=== PATIENT | female | born 1965 | race Caucasian/White ===

== ENCOUNTER 2019-04-12 14:43 | Inpatient (IN) | payer BC ==
[~2019-04-12 14:43] MED LIST: Lidocaine 1% PF 5 ML VIAL ONE; PHENYLEPHRINE-NS 100 MCG/ML 10 ML SYRINGE ONE; PROPOFOL 200 MG/20 ML VIAL ONE
[2019-04-12] MEDS ORDERED: Acetaminophen 500 MG TAB ONE (15:23)
[2019-04-12] MEDS ORDERED: Fentanyl 100 MCG/2 ML VIAL ONE ×3 (15:32→18:59)
[2019-04-12] MEDS ORDERED: Adacel (T-DAP) 0.5 ML SYRINGE ONE (15:32)
[2019-04-12] MEDS ORDERED: Ondansetron PF 4 MG/2 ML Vial ONE (15:32)
[2019-04-12] MEDS ORDERED: Ketorolac Tromethamine 30 MG/ML VIAL ONE (15:32)
[2019-04-12] MEDS ORDERED: Cefepime 2 GM VIAL ONE (15:32)
[2019-04-12] MEDS ORDERED: Sodium Chloride 0.9% 100 ML ONE (15:32)
--- NOTE | 2019-04-12 15:57 | RAD ---
TWO VIEWS OF THE LEFT TIBIA/FIBULA: HISTORY: Skin cancer removed on 03/27 in the left leg. Pain and swelling in the left leg after surgery. FINDINGS: Two views of the left leg show no evidence of acute fracture or dislocation. Mild diffuse soft tissu e swelling is seen. No osseous erosions are seen. IMPRESSION: No evidence of acute osseous abnormality. POS: TPC
[2019-04-12] MEDS ORDERED: Neomycin-Polymyxin 1 ML AMP ONE (17:20)
[2019-04-12] MEDS ORDERED: Midazolam HCl 2 mg/2 ml Vial ONE (17:39)
[2019-04-12] MEDS ORDERED: Morphine 2 MG/ML SYRINGE SLOW IVP PRN (18:24)
[2019-04-12] MEDS ORDERED: Ketorolac Tromethamine 30 MG/ML VIAL IVP PRN (18:24)
[2019-04-12] MEDS ORDERED: ALPRAZolam 0.5 MG TAB PO PRN ×2 (18:24→18:54)
[2019-04-12] MEDS ORDERED: Morphine 4 MG/ML VIAL SLOW IVP PRN (18:24)
[2019-04-12] MEDS ORDERED: Ondansetron HCl/PF 4 MG in Sodium Chloride 0.9% 50 ML IVPB PRN ×2 (18:24→18:54)
[2019-04-12] MEDS ORDERED: HYDROcodone/Acetaminophen 10/325 mg Tablet PO PRN ×2 (18:24)
[2019-04-12] MEDS ORDERED: Ondansetron HCl/PF 4 MG/2 ML Vial IVP PRN ×2 (18:26→18:54)
[2019-04-12] MEDS ORDERED: Promethazine HCl 25 MG/ML VIAL SLOW IVP PRN ×2 (18:26→18:54)
[2019-04-12] MEDS ORDERED: Promethazine HCl 25 MG/ML VIAL IM PRN ×2 (18:26→18:54)
[2019-04-12] MEDS ORDERED: Sodium Chloride 0.9% 1,000 ML IV SCH (18:30)
[2019-04-12] MEDS: Sodium Chloride 0.9% 1,000 ML IV SCH (19:45)
[2019-04-12] MEDS ORDERED: Vancomycin 1.5 GRAM/300 ML BAG 1.5 GM in Premix Bag 1 BAG IVPB SCH ×2 (20:00→21:00)
[2019-04-12 20:10] VITALS: BMI 23.9
[2019-04-12] MEDS: HYDROcodone/Acetaminophen 10/325 mg Tablet PO PRN (20:55)
--- NOTE | 2019-04-12 23:22 | HP ---
CHIEF COMPLAINT: Left lower leg infection. 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 She says two days ago, she went in for postop check. They removed her sutures and has had progressive pain and swelling and erythema since. She reports low-grade fever at home. PAST MEDICAL HISTORY: Hypertension. PAST SURGICAL HISTORY: Just Mohs surgery and carpal tunnel surgery. MEDICATIONS: 1. Amlodipine. 2. Doxycycline. ALLERGIES: NO KNOWN DRUG ALLERGIES. SOCIAL HISTORY: She is . She works as a beauty culture teacher. No tobacco. Social alcohol. FAMILY HISTORY: Hypertension and cancer. PHYSICAL EXAMINATION: VITAL SIGNS: Temperature 99, pulse 115, blood pressure 115/73. GENERAL: She is awake and alert. She appears to be in pain. HEENT: Unremarkable. LUNGS: Clear. HEART: Regular rate and rhythm. ABDOMEN: Soft, nondistended, and nontender. She has cellulitis of the left lower leg from ankle to knee with a 2 cm fluctuant abscess just over the lopez midshaft. She had plain films showing no osseous abnormality. ASSESSMENT: Cellulitis and abscess. PLAN: I and D and debridement in the operating room. CONSENT: I have discussed planned procedure as well as risk of bleeding, infection, need for further surgery. She understands and gives informed consent. Job ID: [id number]
[2019-04-12] MEDS ORDERED: Piperacillin/Tazobactam 3.375 GM in Sodium Chloride 0.9% 100 ML IVPB SCH (23:59)
[2019-04-13] MEDS: Piperacillin/Tazobactam 3.375 GM in Sodium Chloride 0.9% 100 ML IVPB SCH ×5 (00:28→23:39)
[2019-04-13] MEDS: Vancomycin 1.5 GRAM/300 ML BAG 1.5 GM in Premix Bag 1 BAG IVPB SCH ×3 (01:39→21:07)
[2019-04-13] MEDS: HYDROcodone/Acetaminophen 10/325 mg Tablet PO PRN ×4 (04:43→19:14)
[2019-04-13 05:51] LABS: #Basophils 0.1 thou/uL (0.0-0.2); #Eosinphils 0.2 thou/uL (0.0-0.7); #Lymphocytes 0.9 thou/uL (1.20-3.40); #Neutrophils 13.1 thou/uL (1.40-6.50); %Basophils 0.4 % (0.0-1.0); %Eosinophils 1.2 % (0.0-10.0); %Monocytes 6.5 % (0.0-10.0); Hemoglobin 10.8 g/dL (12.0-16.0); Mean Corpuscular HGB CONC 32.1 g/dL (32.0-36.0); Mean Corpuscular Hemoglobin 28.7 pg (27.0-31.0); Mean Corpuscular Volume 89.3 fL (78.0-98.0); Mean Platelet Volume 7.4 fL (7.4-10.4); Platelet Count 193 thou/uL (130-400); RBC Distribution Width 11.9 % (11.5-14.5); Red Blood Cell (RBC) Count 3.75 mill/uL (4.20-5.40); White Blood Cell (WBC) Count 15.2 thou/uL (4.8-10.8)
[2019-04-13 06:10] LABS: Anion Gap 13 mmol/L (10-20); BUN (Urea Nitrogen) 7 mg/dL (9.8-20.1); Calc. Creatinine Clearance 91 mL/min (70-130); Calcium 8.5 mg/dL (7.8-10.44); Carbon Dioxide 19 mmol/L (22-29); Chloride 106 mmol/L (98-107); Estimated GFR-MDRD 82; Glucose 83 mg/dL (70-105); Potassium 3.5 mmol/L (3.5-5.1); Sodium 134 mmol/L (136-145)
[2019-04-13] MEDS: Enoxaparin Sodium 40 MG/0.4 ML SYRINGE SC SCH (08:42)
[2019-04-13] MEDS: Amlodipine 5 MG TAB PO SCH (08:44)
[2019-04-13] MEDS ORDERED: Enoxaparin Sodium 40 MG/0.4 ML SYRINGE SC SCH (09:00)
[2019-04-13] MEDS ORDERED: Amlodipine 5 MG TAB PO SCH (09:00)
--- NOTE | 2019-04-13 09:05 | OP ---
DATE OF PROCEDURE: 04/12/2019 PREOPERATIVE DIAGNOSIS: Abscess and cellulitis, left lower leg. PROCEDURE PERFORMED: Incision, drainage, and debridement of wound, left lower leg. INDICATIONS: This is a 53-year-old female, who had a squamous cell carcinoma excised a couple of weeks ago in [place], stitches removed on Wednesday, had a very rapidly progressive painful infection of the lower leg that extended within 12 hours concerned about fasciitis. FINDINGS: The fascia was intact. There was a 2 cm abscess over the skin. There was a 1 mm puncture of the fascia, but the fascia was all viable. DESCRIPTION OF PROCEDURE: After informed consent was obtained, the patient was taken to the operating room, given general endotracheal anesthesia. She was placed in supine position. Her left lower leg was prepped and draped in usual fashion. An elliptical incision was performed. The fluctuant area was unroofed. Cultures were obtained. The skin was excised. The subcu was excised. Hemostasis was achieved with electrocautery. There was a tiny little 1 mm puncture of the fascia that was opened up to expose the subfascial muscle. Then, the wound was pulse irrigated with 3 L of saline with antibiotic within it. Again, hemostasis assured. The wound was packed open with Betadine wide mesh gauze and sterile gauze wrapped by Kerlix. She tolerated the procedure well, transferred to Recovery in good condition. Sponge and needle count verified correct x2. Job ID: [id number]
[2019-04-13] MEDS ORDERED: Acetaminophen 325 MG TAB PO PRN (10:01)
--- NOTE | 2019-04-13 10:15 | PRG ---
DATE OF SERVICE: 04/13/2019 SUBJECTIVE: The patient states her pain is much better after debridement. Her T max was 103, it is back down to 99. Heart rate 104. She looks good. The erythema is almost resolved. The soft tissue swelling is still prominent. The wound is clean. There is very minimal drainage. LABORATORY DATA: Her white count is 15, H and H 10 and 33, platelet count 193. Electrolytes are fine. ASSESSMENT: Abscess and cellulitis of the left lower leg. PLAN: Continue IV antibiotics. We will ask for wound VAC. Job ID: [id number]
--- NOTE | 2019-04-13 12:00 | PQF ---
CLINICAL DOCUMENTATION IMPROVEMENT CLARIFICATION FORM: ICD-10 Updated PLEASE DO AN ADDENDUM TO THE PROGRESS NOTE WITH ANY DOCUMENTATION UPDATES OR ADDITIONS AND CARRY THROUGH TO DC SUMMARY. THANK YOU. DATE: 04/14/19 ATTN: DR. GAMBINO Please exercise your independent, professional judgment in responding to the clarification form. Clinical indicators are provided on the bottom of this form for your review Please check appropriate box(es): [ ] Sepsis due to: (Pna, UTI, gangrenous gall bladder, etc.) [ ] SIRS due to non-infectious process (please specify etiology) [ ] Localized infection without sepsis [ ] Other diagnosis [ ] Unable to determine In addition, please specify: Present on Admission (POA): [ ] Yes [ ] No [ ] Unable to determine For continuity of documentation, please document condition throughout progress notes and discharge summary. Thank You. CLINICAL INDICATORS - SIGNS / SYMPTOMS / LABS / RESULTS AND LOCATION IN MR ER NOTE: PULSE 119-124 99.9-103.2 BP 89/53 / 97/55 RISKS: CELLULITIS LEFT LOWER LEG (OP NOTE 04/12) TREATMENT: IV CEFEPIME (ER) IV FLUIDS (ER) IV ZOSYN (04/12-PRESENT) IV VANCOMYCIN (STARTED 04/13) WOUND CULTURES 04/12 INCISION AND DRAINAGE AND EXCISIONAL DEBRIDEMENT04/12 (This form is maintained as a part of the permanent medical record) [employer] 2015 [employer]. All Rights Reserved [email or web address] [email or web address] Office: [phone] [facility] SYSTEM[facility]
[2019-04-13] MEDS: Ketorolac Tromethamine 30 MG/ML VIAL IVP PRN ×2 (12:28→18:17)
[2019-04-13] MEDS: Polyethylene Glycol 3350 17 GM Packet PO PRN (12:29)
[2019-04-13 13:26] LABS: Vancomycin, Trough 9.8 ug/mL
[2019-04-13] MEDS: Sodium Chloride 0.9% 1,000 ML IV SCH (18:14)
[2019-04-13] MEDS ORDERED: Sodium Chloride 0.9% 1,000 ML IV SCH (19:45)
--- NOTE | 2019-04-13 23:15 | CON ---
DATE OF CONSULTATION: PRIMARY CARE PHYSICIAN: Dr. Tali Goodwin and it is out of town physician. REASON FOR CONSULTATION: Medical management and hypotension. REASON FOR ADMISSION: I and D of leg infection. HISTORY OF PRESENT ILLNESS: Ms. Carrera is a very pleasant 53-year-old female, who was recently found to have squamous cell carcinoma of her left leg. She had a Mohs excision procedure and had gone on Wednesday to have the sutures removed. She says when the sutures were taken out, she was doing fine, but then later on that night she started having swelling in the legs, but no fever. By Wednesday, the swelling had gotten worse and she was not feeling well. The area was a bit red and painful as well. She came to the ER for evaluation. There, she was found to have cellulitis and there was also concern for possible abscess. She was admitted by Dr. Durham and underwent an incision and drainage and debridement of a left lower leg abscess and wound VAC was placed. She was started on antibiotics on admission including vancomycin and Zosyn. We were consulted due to the patient's blood pressure dropping as low as 80/53. During this time, she was essentially asymptomatic, but her daughter says she does appear to be more tired and sleepy than usual. She has been given a liter of fluid IV and her pressure has since recovered and we were asked to help in her evaluation. The patient other than feeling a bit tired, denies any other complaints such as nausea, vomiting, no diarrhea, but she does admit that her appetite has not been the greatest. No chest pain, but she does note that she does feel a bit short winded and notices that she hears some "wheezing or whistling" in her chest when she freeze recently. REVIEW OF SYSTEMS: Negative. PAST MEDICAL HISTORY: Significant for hypertension, as well as recent diagnosis of squamous cell carcinoma. PAST SURGICAL HISTORY: She has had Mohs procedure, excision of the squamous cell carcinoma, and then I and D of the abscess on the left lower leg yesterday. ALLERGIES: NO KNOWN DRUG ALLERGIES. SOCIAL HISTORY: She is . She works as a teacher of the handicapped. She denies any tobacco use. She drinks socially. FAMILY HISTORY: Significant for hypertension and cancer. MEDICATIONS: Include: 1. Amlodipine 10 mg daily. 2. Acyclovir 800 mg daily. 3. Duloxetine 60 mg daily. 4. Yuvafem estradiol vaginally. 5. MiraLAX 17 g daily. 6. Crestor 5 mg at bedtime. PHYSICAL EXAMINATION: GENERAL: She is alert and oriented. She appears to be in no acute distress. She is well developed and well nourished. VITAL SIGNS: Blood pressure was 103/53, heart rate 86, respiratory rate of 16, temperature is 97.8, and O2 saturation is 94% on room air. HEENT: Pupils are equal, round, and reactive. Extraocular muscles are intact. Her sclerae are anicteric. Throat, no erythema, no exudates. NECK: No adenopathy. No bruits. LUNGS: Clear with the exception of some rales primarily in the right lung field, as well as some mild expiratory wheezing. CARDIOVASCULAR: She had a normal S1 and S2. There is no S3 or S4. No murmurs or clicks. No rubs. ABDOMEN: Soft, nontender, and nondistended. Positive for bowel sounds. No rebound or guarding. No organomegaly. EXTREMITIES: She has a wound VAC in place on the left leg. There is some erythema and edema in the left lower extremity especially around the foot and the ankle. She does have 2+ pitting edema, however, she has intact pulses. The dorsalis pedis and posterior tibial are 2+ and symmetric. She has good capillary refill. She does not have any paresthesias in the foot. She is able to wiggle all of her toes. LABORATORY RESULTS: She had a CBC, the white blood cell count 15.2, hemoglobin 10.8, hematocrit is 33.5, and platelet count is 193. Sodium 134, potassium 3.5, chloride is 106, CO2 is 19, BUN is 7, creatinine 0.74. ASSESSMENT: This is a 53-year-old female, who presented with cellulitis and abscess of the left lower extremity. She is status post I and D. Culture from the wound is growing Staph aureus. The sensitivities are still pending. I suspect that the patient's hypotension may have been related to a transient bacteremia from the staph infection. Hopefully with continued IV antibiotics, her blood pressure should recover and maintain. For the plan, we will get a set of blood cultures to see whether or not she has any bacteremia. Unfortunately since she has been on antibiotics for several days, the yield is likely to be low. We will go ahead and discontinue the IV fluids as her blood pressure is now above 90, as there was some concern that she might be becoming volume overloaded as evidenced by some clinical pulmonary congestion. We will also start some incentive spirometry and DuoNeb p.r.n. 1. Hypertension. Continue to hold her amlodipine until her blood pressure fully recovers. 2. We will repeat CBC and chemistry panel in the a.m. We will be happy to follow along with you. Thanks for allowing us to participate in the care of this very nice lady. Job ID: [id number]
[2019-04-14] MEDS ORDERED: Sodium Chloride 0.9% 10 ML ONE (03:01)
[2019-04-14] MEDS: Piperacillin/Tazobactam 3.375 GM in Sodium Chloride 0.9% 100 ML IVPB SCH ×4 (05:37→23:06)
[2019-04-14] MEDS: HYDROcodone/Acetaminophen 10/325 mg Tablet PO PRN ×4 (05:47→18:32)
[2019-04-14 05:54] LABS: #Eosinphils 0.3 thou/uL (0.0-0.7); #Lymphocytes 0.9 thou/uL (1.20-3.40); #Monocytes 0.7 thou/uL (0.11-0.59); #Neutrophils 8.1 thou/uL (1.40-6.50); %Basophils 0.1 % (0.0-1.0); %Eosinophils 3.1 % (0.0-10.0); %Lymphocytes 8.7 % (21.0-51.0); %Monocytes 6.6 % (0.0-10.0); %Neutrophils 81.6 % (42.0-75.0); Hemoglobin 10.4 g/dL (12.0-16.0); Mean Corpuscular HGB CONC 33.3 g/dL (32.0-36.0); Mean Corpuscular Volume 90.2 fL (78.0-98.0); Mean Platelet Volume 7.5 fL (7.4-10.4); Platelet Count 186 thou/uL (130-400); Red Blood Cell (RBC) Count 3.47 mill/uL (4.20-5.40); White Blood Cell (WBC) Count 9.9 thou/uL (4.8-10.8)
[2019-04-14 06:06] LABS: Anion Gap 9 mmol/L (10-20); BUN (Urea Nitrogen) 8 mg/dL (9.8-20.1); Calc. Creatinine Clearance 89 mL/min (70-130); Calcium 8.1 mg/dL (7.8-10.44); Carbon Dioxide 20 mmol/L (22-29); Chloride 111 mmol/L (98-107); Estimated GFR-MDRD 81; Glucose 119 mg/dL (70-105); Potassium 3.4 mmol/L (3.5-5.1); Sodium 137 mmol/L (136-145)
[2019-04-14] MEDS: Vancomycin 1.5 GRAM/300 ML BAG 1.5 GM in Premix Bag 1 BAG IVPB SCH ×2 (08:06→16:43)
[2019-04-14] MEDS: Enoxaparin Sodium 40 MG/0.4 ML SYRINGE SC SCH (08:18)
[2019-04-14] MEDS: Ketorolac Tromethamine 30 MG/ML VIAL IVP PRN ×2 (08:18→14:29)
--- NOTE | 2019-04-14 08:23 | PRG ---
DATE OF SERVICE: 04/14/2019 SUBJECTIVE: The patient reports pain is better. The wound VAC has been applied. She had an episode of hypotension yesterday with systolic blood pressures in the 80s. She was awake and alert at that time, but did have some mild tachycardia. She responded to a fluid bolus. Cultures have grown out Staph aureus from the wound that is sensitive to most antibiotics. OBJECTIVE: EXTREMITIES: On examination, she still has cellulitis of the ankle. Still has 2+ edema to just above the knee. There is still some mild soft tissue tenderness. LABORATORY DATA: Her white count has fallen to 9.9 from 15, H and H of 10 and 31, and platelet count 186. ASSESSMENT: Staph infection, but I am really suspicious that there may be polymicrobial due to the extent of the cellulitis, that may not have been picked up on the culture. PLAN: I would like to continue the Zosyn as well as the vancomycin for now. Continue elevation on IV antibiotics. Job ID: [id number]
[2019-04-14] MEDS: Polyethylene Glycol 3350 17 GM Packet PO PRN (14:05)
[2019-04-14] MEDS: Amlodipine 5 MG TAB PO SCH (14:46)
--- NOTE | 2019-04-14 15:28 | PDOC.HOSPP ---
- Subjective Encounter Date: 04/14/19 Encounter Time: 13:45 Subjective: pt up in bed still complains of pain and swelling to her left lower ext. - Objective Vital Signs & Weight: Vital Signs (12 hours) Temp Pulse Resp BP Pulse Ox 04/14/19 14:46 97 04/14/19 11:19 98.8 F 97 20 103/61 04/14/19 07:41 98.4 F 105 H 20 119/72 95 Weight Admit Weight 144 lb Weight 144 lb I&O: 04/13/19 04/14/19 04/15/19 06:59 06:59 06:59 Intake Total 2208 1795 Balance 2208 1795 Result Diagrams: 04/14/19 05:35 04/14/19 05:35 Hospitalist ROS - Review of Systems Cardiovascular: denies: chest pain, palpitations, orthopnea, paroxysmal noc. dyspnea, edema, light headedness, other Gastrointestinal: denies: nausea, vomiting, abdominal pain, diarrhea, constipation, melena, hematochezia, other Musculoskeletal: reports: leg pain - Medication Medications: Active Medications Generic Name Dose Route Start Last Admin Trade Name Freq PRN Reason Stop Dose Admin Hydrocodone Bitart/Acetaminophen 1 tab 04/12/19 18:54 04/14/19 05:47 [place] 10/325 PO 1 tab Q4H PRN Administration Mild-Moderate Pain (1-5) Hydrocodone Bitart/Acetaminophen 2 tab 04/12/19 18:54 04/14/19 14:03 [place] 10/325 PO 2 tab Q4H PRN Administration Moderate to Severe Pain (6-10) Albuterol/Ipratropium 3 ml 04/13/19 22:35 04/14/19 03:16 Duoneb NEB 3 ml [id number] PRN Administration SOB &/or Wheezing Amlodipine Besylate 5 mg 04/13/19 09:00 04/14/19 14:46 Norvasc PO Not Given DAILY DAMI Enoxaparin Sodium 40 mg 04/13/19 09:00 04/14/19 08:18 Lovenox SC 40 mg 0900 DAMI Administration Piperacillin Sod/Tazobactam 100 mls @ 200 mls/hr 04/14/19 12:00 04/14/19 12: 17 Sod 3.375 gm/ Sodium Chloride IVPB 100 mls Q6HR DAMI Administration Ketorolac Tromethamine 30 mg 04/12/19 18:54 04/14/19 14:29 Toradol IVP 04/17/19 18:25 30 mg Q6H PRN Administration Pain Polyethylene Glycol 17 gm 04/13/19 10:36 04/14/19 14:05 Miralax PO 17 gm DAILYPRN PRN Administration Constipation Sodium Chloride 10 ml 04/14/19 09:00 04/14/19 08:20 Flush - Normal Saline IVF 10 ml Q12HR DAMI Administration - Exam Neck: negative: supple, symmetric, no JVD, no thyromegaly, no lymphadenopathy, no carotid bruit, JVD Heart: negative: RRR, no murmur, no gallops, no rubs, normal peripheral pulses, irregular, diminshed peripheral pulses, murmur present, II/IV, III/IV Respiratory: negative: CTAB, no wheezes, no rales, no ronchi, normal chest expansion, no tachypnea, normal percussion, rales, rhonchi, tachypneic, wheezes Gastrointestinal: negative: soft, non-tender, non-distended, normal bowel sounds , no palpable masses, no hepatomegaly, no splenomegaly, no bruit, no guarding, no rigidity, tender to palpation, distended, diminished bowl sounds, voluntary guarding Extremities - other findings: left leg mild erythema, pulse present, wound wrapped Hosp A/P (1) Sepsis Code(s): A41.9 - SEPSIS, UNSPECIFIED ORGANISM Status: Acute (2) Squamous cell skin cancer Code(s): C44.92 - SQUAMOUS CELL CARCINOMA OF SKIN, UNSPECIFIED Status: Acute (3) HTN (hypertension) Code(s): I10 - ESSENTIAL (PRIMARY) HYPERTENSION Status: Acute (4) Left leg cellulitis Code(s): L03.116 - CELLULITIS OF LEFT LOWER LIMB Status: Acute - Plan pt s/p I&D of the left lopez. will continue abx for now. bp is stable. will hold norvasc for now. she is on dvt ppx. left ext doppler negative. ct of left lower ext indicated subcutaneous stranding.
[2019-04-14 23:19] LABS: #Eosinphils 0.4 thou/uL (0.0-0.7); #Lymphocytes 1.3 thou/uL (1.20-3.40); #Monocytes 0.6 thou/uL (0.11-0.59); #Neutrophils 5.1 thou/uL (1.40-6.50); %Basophils 0.3 % (0.0-1.0); %Eosinophils 5.4 % (0.0-10.0); %Lymphocytes 17.2 % (21.0-51.0); %Monocytes 7.6 % (0.0-10.0); %Neutrophils 69.5 % (42.0-75.0); Hemoglobin 9.6 g/dL (12.0-16.0); Mean Corpuscular Hemoglobin 29.4 pg (27.0-31.0); Mean Corpuscular Volume 89.1 fL (78.0-98.0); Mean Platelet Volume 7.5 fL (7.4-10.4); Platelet Count 208 thou/uL (130-400); RBC Distribution Width 12.1 % (11.5-14.5); Red Blood Cell (RBC) Count 3.27 mill/uL (4.20-5.40); White Blood Cell (WBC) Count 7.4 thou/uL (4.8-10.8)
[2019-04-14 23:41] LABS: Vancomycin, Trough 26.6 ug/mL
[2019-04-15] MEDS: Vancomycin 1.5 GRAM/300 ML BAG 1.5 GM in Premix Bag 1 BAG IVPB SCH (00:32)
[2019-04-15] MEDS: HYDROcodone/Acetaminophen 10/325 mg Tablet PO PRN ×6 (00:41→20:13)
[2019-04-15] MEDS: Piperacillin/Tazobactam 3.375 GM in Sodium Chloride 0.9% 100 ML IVPB SCH (05:53)
[2019-04-15] MEDS: Ketorolac Tromethamine 30 MG/ML VIAL IVP PRN ×2 (08:57→23:44)
[2019-04-15] MEDS: Enoxaparin Sodium 40 MG/0.4 ML SYRINGE SC SCH (09:04)
[2019-04-15] MEDS: Morphine 2 MG/ML SYRINGE SLOW IVP PRN (09:55)
[2019-04-15] MEDS: cefTRIAXone\\ROCEPHIN 2 GM in Sodium Chloride 0.9% 100 ML IVPB SCH (09:57)
[2019-04-15 11:15] LABS: Vancomycin, Trough 10.2 ug/mL
--- NOTE | 2019-04-15 12:01 | PRG ---
DATE OF SERVICE: 04/15/2019 SUBJECTIVE: The patient states the pain is much better. Swelling is better. No fever or chills. OBJECTIVE: GENERAL: She still got quite a bit of cellulitis around the ankle, but the edema is down. She got the wound VAC in place. VITAL SIGNS: Her temperature is 98, pulse 97, and blood pressure 123/76. ASSESSMENT: Improved. PLAN: Antibiotics have been changed to ceftriaxone. We will reassess tomorrow. It is possible we need to get a home wound VAC ordered and when that is arranged, we let her go home. Job ID: [id number]
[2019-04-15] MEDS: Morphine 4 MG/ML VIAL SLOW IVP PRN ×2 (13:30→15:20)
[2019-04-15] MEDS ORDERED: Vancomycin HCl 1 GM in Premix Bag 1 BAG IVPB SCH (14:00)
--- NOTE | 2019-04-15 16:04 | PDOC.HOSPP ---
- Subjective Encounter Date: 04/15/19 Encounter Time: 10:15 Subjective: pt up in bed feels her left foot swelling has improved. - Objective Vital Signs & Weight: Vital Signs (12 hours) Temp Pulse Resp BP BP Pulse Ox 04/15/19 15:16 98.2 F 103 H 16 119/69 97 04/15/19 11:20 98.3 F 97 16 123/76 04/15/19 07:30 97.8 F 99 20 110/59 L 92 L 04/15/19 05:54 98.9 F 89 16 121/68 94 L Weight Admit Weight 144 lb Weight 144 lb I&O: 04/14/19 04/15/19 04/16/19 06:59 06:59 06:59 Intake Total 1795 771 Balance 1795 771 Result Diagrams: 04/14/19 23:05 04/14/19 05:35 Hospitalist ROS - Review of Systems Cardiovascular: denies: chest pain, palpitations, orthopnea, paroxysmal noc. dyspnea, edema, light headedness, other Gastrointestinal: denies: nausea, vomiting, abdominal pain, diarrhea, constipation, melena, hematochezia, other Genitourinary: denies: dysuria, frequency, incontinence, hematuria, retention, other Musculoskeletal: reports: leg pain - Medication Medications: Active Medications Generic Name Dose Route Start Last Admin Trade Name Freq PRN Reason Stop Dose Admin Hydrocodone Bitart/Acetaminophen 1 tab 04/12/19 18:54 04/15/19 15:21 [place] 10/325 PO 1 tab Q4H PRN Administration Mild-Moderate Pain (1-5) Hydrocodone Bitart/Acetaminophen 2 tab 04/12/19 18:54 04/15/19 00:41 [place] 10/325 PO 2 tab Q4H PRN Administration Moderate to Severe Pain (6-10) Albuterol/Ipratropium 3 ml 04/13/19 22:35 04/14/19 23:37 Duoneb NEB 3 ml [id number] PRN Administration SOB &/or Wheezing Amlodipine Besylate 5 mg 04/13/19 09:00 04/14/19 14:46 Norvasc PO Not Given DAILY DAMI Enoxaparin Sodium 40 mg 04/13/19 09:00 04/15/19 09:04 Lovenox SC 40 mg 0900 DAMI Administration Ceftriaxone Sodium 2 gm/ 100 mls @ 200 mls/hr 04/15/19 09:00 04/15/19 09:57 Sodium Chloride IVPB 100 mls Q24HR DAMI Administration Ketorolac Tromethamine 30 mg 04/12/19 18:54 04/15/19 08:57 Toradol IVP 04/17/19 18:25 30 mg Q6H PRN Administration Pain Morphine Sulfate 2 mg 04/12/19 18:54 04/15/19 09:55 Morphine SLOW IVP 2 mg Q2H PRN Administration Mild-Moderate Pain (1-5) Morphine Sulfate 4 mg 04/12/19 18:54 04/15/19 15:20 Morphine SLOW IVP 4 mg Q2H PRN Administration Moderate to Severe Pain (6-10) Polyethylene Glycol 17 gm 04/13/19 10:36 04/14/19 14:05 Miralax PO 17 gm DAILYPRN PRN Administration Constipation Sodium Chloride 10 ml 04/14/19 09:00 04/15/19 13:30 Flush - Normal Saline IVF 10 ml Q12HR DAMI Administration - Exam Heart: negative: RRR, no murmur, no gallops, no rubs, normal peripheral pulses, irregular, diminshed peripheral pulses, murmur present, II/IV, III/IV Respiratory: negative: CTAB, no wheezes, no rales, no ronchi, normal chest expansion, no tachypnea, normal percussion, rales, rhonchi, tachypneic, wheezes Gastrointestinal: negative: soft, non-tender, non-distended, normal bowel sounds , no palpable masses, no hepatomegaly, no splenomegaly, no bruit, no guarding, no rigidity, tender to palpation, distended, diminished bowl sounds, voluntary guarding Extremities - other findings: left leg swelling noted mild eythema to left foot Hosp A/P (1) Sepsis Code(s): A41.9 - SEPSIS, UNSPECIFIED ORGANISM Status: Acute (2) Squamous cell skin cancer Code(s): C44.92 - SQUAMOUS CELL CARCINOMA OF SKIN, UNSPECIFIED Status: Acute (3) HTN (hypertension) Code(s): I10 - ESSENTIAL (PRIMARY) HYPERTENSION Status: Acute (4) Left leg cellulitis Code(s): L03.116 - CELLULITIS OF LEFT LOWER LIMB Status: Acute - Plan pt s/p I&D of the left lopez. will continue abx for now. bp is stable. will hold norvasc for now. she is on dvt ppx. left ext doppler negative. ct of left lower ext indicated subcutaneous stranding. will change abx to ceftriaxone due to MSSA. pt has some erythema noted to left foot area, will monitor. continue to hold Norvasc. pt has wound vac to be changed by wound care.
[2019-04-16] MEDS: HYDROcodone/Acetaminophen 10/325 mg Tablet PO PRN ×4 (06:01→19:57)
[2019-04-16] MEDS: cefTRIAXone\\ROCEPHIN 2 GM in Sodium Chloride 0.9% 100 ML IVPB SCH (08:47)
[2019-04-16] MEDS: Enoxaparin Sodium 40 MG/0.4 ML SYRINGE SC SCH (08:47)
[2019-04-16] MEDS: Saccharomyces boulardii 250 MG CAP PO SCH (08:47)
[2019-04-16] MEDS: Ketorolac Tromethamine 30 MG/ML VIAL IVP PRN (11:13)
--- NOTE | 2019-04-16 14:22 | PDOC.HOSPP ---
- Subjective Encounter Date: 04/16/19 Encounter Time: 10:00 Subjective: pt up in bed no complains of pain to her left foot. - Objective Vital Signs & Weight: Vital Signs (12 hours) Temp Pulse Resp BP Pulse Ox 04/16/19 11:44 99.2 F 97 16 131/78 96 04/16/19 08:14 99.1 F 95 16 124/71 94 L 04/16/19 04:54 98.4 F 97 16 103/62 94 L Weight Admit Weight 144 lb Weight 144 lb I&O: 04/15/19 04/16/19 04/17/19 06:59 06:59 06:59 Intake Total 771 1376 Output Total 600 Balance 771 776 Result Diagrams: 04/14/19 23:05 04/14/19 05:35 Hospitalist ROS - Review of Systems Cardiovascular: denies: chest pain, palpitations, orthopnea, paroxysmal noc. dyspnea, edema, light headedness, other Gastrointestinal: denies: nausea, vomiting, abdominal pain, diarrhea, constipation, melena, hematochezia, other Genitourinary: denies: dysuria, frequency, incontinence, hematuria, retention, other - Medication Medications: Active Medications Generic Name Dose Route Start Last Admin Trade Name Freq PRN Reason Stop Dose Admin Hydrocodone Bitart/Acetaminophen 1 tab 04/12/19 18:54 04/15/19 15:21 [place] 10/325 PO 1 tab Q4H PRN Administration Mild-Moderate Pain (1-5) Hydrocodone Bitart/Acetaminophen 2 tab 04/12/19 18:54 04/16/19 11:13 [place] 10/325 PO 2 tab Q4H PRN Administration Moderate to Severe Pain (6-10) Albuterol/Ipratropium 3 ml 04/13/19 22:35 04/15/19 22:54 Duoneb NEB 3 ml [id number] PRN Administration SOB &/or Wheezing Amlodipine Besylate 5 mg 04/13/19 09:00 04/14/19 14:46 Norvasc PO Not Given DAILY DAMI Enoxaparin Sodium 40 mg 04/13/19 09:00 04/16/19 08:47 Lovenox SC 40 mg 0900 DAMI Administration Ceftriaxone Sodium 2 gm/ 100 mls @ 200 mls/hr 04/15/19 09:00 04/16/19 08:47 Sodium Chloride IVPB 100 mls Q24HR DAMI Administration Ketorolac Tromethamine 30 mg 04/12/19 18:54 04/16/19 11:13 Toradol IVP 04/17/19 18:25 30 mg Q6H PRN Administration Pain Morphine Sulfate 2 mg 04/12/19 18:54 04/15/19 09:55 Morphine SLOW IVP 2 mg Q2H PRN Administration Mild-Moderate Pain (1-5) Morphine Sulfate 4 mg 04/12/19 18:54 04/15/19 15:20 Morphine SLOW IVP 4 mg Q2H PRN Administration Moderate to Severe Pain (6-10) Polyethylene Glycol 17 gm 04/13/19 10:36 04/14/19 14:05 Miralax PO 17 gm DAILYPRN PRN Administration Constipation Saccharomyces Boulardii 250 mg 04/16/19 09:00 04/16/19 08:47 Florastor PO 250 mg DAILY DAMI Administration Sodium Chloride 10 ml 04/14/19 09:00 04/16/19 08:48 Flush - Normal Saline IVF Not Given Q12HR DAMI - Exam Neck: negative: supple, symmetric, no JVD, no thyromegaly, no lymphadenopathy, no carotid bruit, JVD Heart: negative: RRR, no murmur, no gallops, no rubs, normal peripheral pulses, irregular, diminshed peripheral pulses, murmur present, II/IV, III/IV Respiratory: negative: CTAB, no wheezes, no rales, no ronchi, normal chest expansion, no tachypnea, normal percussion, rales, rhonchi, tachypneic, wheezes Extremities - other findings: erythema noted to left inner ankle Hosp A/P (1) Sepsis Code(s): A41.9 - SEPSIS, UNSPECIFIED ORGANISM Status: Acute (2) Squamous cell skin cancer Code(s): C44.92 - SQUAMOUS CELL CARCINOMA OF SKIN, UNSPECIFIED Status: Acute (3) HTN (hypertension) Code(s): I10 - ESSENTIAL (PRIMARY) HYPERTENSION Status: Acute (4) Left leg cellulitis Code(s): L03.116 - CELLULITIS OF LEFT LOWER LIMB Status: Acute - Plan pt s/p I&D of the left lopez. will continue abx for now. bp is stable. will hold norvasc for now. she is on dvt ppx. left ext doppler negative. ct of left lower ext indicated subcutaneous stranding. will change abx to ceftriaxone due to MSSA. pt has some erythema noted to left foot area, will monitor. continue to hold Norvasc. pt has wound vac to be changed by wound care. 04/15 sepsis resolved, will continue abx for now. she has erythema to her left ankle will monitor possible tracking of drainage to that area?
--- NOTE | 2019-04-16 14:58 | PRG ---
DATE OF SERVICE: 04/16/2019 SUBJECTIVE: The patient says that the pain is maybe a little worse. The redness is definitely worse on examination. Temperature is 99.2, pulse 97, blood pressure 131/78. Her antibiotics were changed yesterday to Rocephin. On examination, the cellulitis is definitely worse, especially around her ankle and the tenderness is worse. PLAN: We will repeat CBC. I am going to change to a KCI, irrigating wound VAC. Add clindamycin IV. Consult Infectious Disease. I told her to try not to be out of bed as much. She can get out of bed to go the restroom, but otherwise she keep her leg elevated. Job ID: [id number]
--- NOTE | 2019-04-16 16:01 | CON ---
DATE OF CONSULTATION: 04/16/2019 REASON FOR CONSULTATION: Left leg inflammatory process. 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 The patient was admitted a few days ago. Dr. Durham did an I and D and the operative report is reviewed and there was a fluctuant area which was unroofed. Cultures obtained. Hemostasis was achieved with electrocautery. There was a small area of punctured fascia which was opened, subfascial muscle was exposed and the area irrigated. She has a negative pressure dressing in place at the time. No headaches, visual symptoms, sore throat, odynophagia, dysphagia. No cough, sputum production, chest pain, back pain. No abdominal pain or diarrhea or genitourinary symptoms. PAST MEDICAL HISTORY: Hypertension, skin cancer, recent surgical resection of skin cancer left leg with complications noted above. SOCIAL HISTORY: Lives in [place] town around [place]. Works in a school. Quit smoking many decades ago. Lives with family. No drinking alcoholic beverages. ALLERGIES: NO KNOWN DRUG ALLERGIES. CURRENT MEDICATIONS: 1. Hydrocodone. 2. DuoNeb. 3. Xanax. 4. Ceftriaxone. 5. Clindamycin. PHYSICAL EXAMINATION: VITAL SIGNS: T-max 103. She has been afebrile since T-max 99.2, BP 130/78, pulse 97. SKIN: Exam shows the area of mild to moderate erythema and circumferential distribution in the left leg extending from the knee to the foot with some edema. In the anterior aspect, there is a negative pressure dressing applied over the wound. The wound was seen in pictures, somewhat elliptical the area of debridement done by Dr. Durham. Peripheral IV access no lymphadenopathy. HEENT: Noncontributory. NECK: Supple. LUNGS: Symmetric. Clear breath sounds. HEART: S1-S2 regular rate. No S3 or S4.3 ABDOMEN: Soft, not distended or tender. No ascites. No bladder distention. EXTREMITIES: No joint inflammatory activity. Moves extremities equally with limitations imposed by the inflammatory process. LABORATORY DATA: White cell count down from 15 to 7.4, hemoglobin 9.6, and platelets 208. Creatinine 0.75. Staph aureus retrieved from the site which is methicillin sensitive strain. ASSESSMENT: Skin cancer removal with postop abscess, status post debridement and now has cellulitis. We will switch her to cefazolin and eventually oral Keflex for discharge planning once there is improvement. There was clear-cut laboratory improvement and I predict steady clinical improvement in the ensuing days. Job ID: [id number]
[2019-04-16] MEDS ORDERED: Clindamycin/D5W 900 MG in Premix Bag 1 BAG IVPB SCH (22:00)
[2019-04-16] MEDS ORDERED: CEFAZOLIN 2 GM in Premix Bag 1 BAG IVPB SCH (22:00)
[2019-04-16] MEDS: Morphine 4 MG/ML VIAL SLOW IVP PRN (22:30)
[2019-04-17] MEDS: CEFAZOLIN 2 GM in Premix Bag 1 BAG IVPB SCH ×3 (00:58→18:08)
[2019-04-17] MEDS: HYDROcodone/Acetaminophen 10/325 mg Tablet PO PRN ×4 (08:16→20:41)
[2019-04-17] MEDS: Saccharomyces boulardii 250 MG CAP PO SCH (08:17)
[2019-04-17] MEDS: Amlodipine 5 MG TAB PO SCH (08:19)
[2019-04-17] MEDS: Enoxaparin Sodium 40 MG/0.4 ML SYRINGE SC SCH (08:19)
--- NOTE | 2019-04-17 09:30 | PRG ---
DATE OF SERVICE: 04/17/2019 SUBJECTIVE: The patient says she feels a little bit better, leg still pretty red. Dr. Stewart came by, made recommendations and switched her antibiotics. OBJECTIVE: VITAL SIGNS: She is afebrile. Pulse is tachy at 114, blood pressure is 123/74. EXTREMITIES: The leg has less swelling. Redness is still there. PLAN: The plan is to change the wound VAC to an irrigating wound VAC. We will check another CBC. Continue the new antibiotics that Dr. Stewart has been ordered. Job ID: [id number]
[2019-04-17 09:52] LABS: #Eosinphils 0.3 thou/uL (0.0-0.7); #Lymphocytes 1.8 thou/uL (1.20-3.40); #Monocytes 0.8 thou/uL (0.11-0.59); #Neutrophils 4.4 thou/uL (1.40-6.50); %Basophils 0.5 % (0.0-1.0); %Lymphocytes 24.2 % (21.0-51.0); %Neutrophils 60.3 % (42.0-75.0); Hemoglobin 10.7 g/dL (12.0-16.0); Mean Corpuscular HGB CONC 34.4 g/dL (32.0-36.0); Mean Corpuscular Hemoglobin 30.3 pg (27.0-31.0); Mean Platelet Volume 6.9 fL (7.4-10.4); Platelet Count 307 thou/uL (130-400); RBC Distribution Width 12.1 % (11.5-14.5); Red Blood Cell (RBC) Count 3.53 mill/uL (4.20-5.40); White Blood Cell (WBC) Count 7.2 thou/uL (4.8-10.8)
[2019-04-17] MEDS: Morphine 4 MG/ML VIAL SLOW IVP PRN (11:16)
[2019-04-17] MEDS: Ketorolac Tromethamine 30 MG/ML VIAL IVP PRN (16:26)
--- NOTE | 2019-04-17 16:43 | PRG ---
DATE OF SERVICE: 04/17/2019 SUBJECTIVE: Feeling about the same. The leg is not hurting as much. No diarrhea. No respiratory symptoms. OBJECTIVE: VITAL SIGNS: She is afebrile. LUNGS: Clear. HEART: S1 and S2, regular rate. EXTREMITIES: Left leg with about 30% improvement in the erythema. LABORATORY DATA: White cell count is down to 7.2, hemoglobin 10.7, platelets 307. Blood culture, no growth from the . ASSESSMENT AND DISCUSSION: Skin cancer removal with postop abscess and cellulitis secondary to MSSA or methicillin-sensitive Staph aureus. Continue cefazolin. Hopefully on Wednesday, go home on oral Keflex. Job ID: [id number]
[2019-04-18] MEDS: HYDROcodone/Acetaminophen 10/325 mg Tablet PO PRN ×4 (00:42→20:42)
[2019-04-18] MEDS: CEFAZOLIN 2 GM in Premix Bag 1 BAG IVPB SCH ×3 (01:36→20:45)
[2019-04-18] MEDS: Morphine 4 MG/ML VIAL SLOW IVP PRN ×2 (04:19→22:41)
[2019-04-18] MEDS: Amlodipine 5 MG TAB PO SCH (10:27)
[2019-04-18] MEDS: Saccharomyces boulardii 250 MG CAP PO SCH (10:33)
[2019-04-18] MEDS: Enoxaparin Sodium 40 MG/0.4 ML SYRINGE SC SCH (10:33)
--- NOTE | 2019-04-18 13:55 | PRG ---
DATE OF SERVICE: 04/18/2019 SUBJECTIVE: Having more pain in the left foot today. She had exchange of the dressing. No respiratory symptoms or abdominal pain. No diarrhea. Has not had a fever. OBJECTIVE: LUNGS: Clear. HEART: S1 and S2. Regular rate. EXTREMITIES: Left foot with more erythema and the area around the ankle is more swollen and tender, particularly the left lateral malleolus. The area around the mid leg wound is actually looking better with less erythema and less swelling. LABORATORY DATA: White cell count 7.2, hemoglobin 10.7, and platelets 307 with a normal differential. ASSESSMENT AND DISCUSSION: Mohs surgery for removal of skin cancer with postoperative infection due to methicillin-sensitive Staphylococcus aureus. The patient will continue cefazolin. We will check duplex ultrasound of the left lower extremity to rule out DVT and an MRI of the left foot and ankle with contrast to rule out septic arthritis or tenosynovitis. Job ID: [id number]
[2019-04-18] MEDS ORDERED: Magnevist 469MG/ML 20 ML VIAL ONE (14:23)
--- NOTE | 2019-04-18 14:25 | PRG ---
DATE OF SERVICE: 04/18/2019 SUBJECTIVE: The patient says the pain is getting worse. The redness is getting worse. OBJECTIVE: VITAL SIGNS: Temperature 98, pulse 95, blood pressure 140/90. EXTREMITIES: On exam, she has a very very significant cellulitis of the left lower ankle. LABORATORY DATA: Her white count is still low at 7.2. ASSESSMENT: Cellulitis, worsening. PLAN: MRI of left lower leg to see if there is some pus somewhere, they needs to be drained. Job ID: [id number]
--- NOTE | 2019-04-18 15:02 | ULT ---
VENOUS DOPPLER ULTRASOUND OF THE LEFT LOWER EXTREMITY: DATE: 04/18/2019 HISTORY: Pain and edema in the left lower extremity. TECHNIQUE: [place] scale ultrasound with color flow and spectral Doppler imaging of the deep venous system of the l eft lower extremity is performed. FINDINGS: There is good flow, compression, and augmentation noted in the left common femoral, femoral, deep fem oral, popliteal, posterior tibial, and greater saphenous veins. IMPRESSION: No evidence of deep venous thrombosis in the left lower extremity. POS: [facility]
--- NOTE | 2019-04-18 16:08 | MRI ---
Exam: Left lower extremity MRI without IV contrast: HISTORY: Left ankle swelling, erythema, and pain, history of squamous cell cancer removed. FINDINGS: There is a large open wound at the upper anterior portion of the lower leg overlying the anterior tib ia measuring approximately 3.1 cm transversely. In the deep portion of the superficial soft tissues just medial and just lateral to this open wound there is some fluid and extension from the wound appr oximating 1.4 cm in length medially and 0.3 cm in thickness and approximately 0.9 cm in length laterally at approximately 0.2 cm in thickness. These appear to be connected to the open wound. There is some focal increased signal within the anterior portion of the tibialis anterior muscle evidence for some focal myositis but this only involves the periphery that is immediately adjacent to the open wound. There is some scattered subcutaneous edema and/or cellulitis primarily anteriorly from the level of the open wound extending down to the hindfoot. There is no evidence for drainable a bscess. No evidence for osteomyelitis. IMPRESSION: Large open wound with some minimal superficial linear fluid extensions horizontally, medially and lat erally but these appear to connect to the open wound. No evidence for osteomyelitis. No evidence for focal drainable abscess. No evidence for intramuscular abscess or myonecrosis. Minimal peripheral superficial T2 hyperintensity within the tibialis anterior muscle underlying the o pen wound evidence for some focal myositis.
[2019-04-18] MEDS ORDERED: Sodium Chloride 0.9% 10 ML ONE (16:17)
[2019-04-18] MEDS: Morphine 2 MG/ML SYRINGE SLOW IVP PRN (16:18)
[2019-04-18] MEDS: Zolpidem Tartrate 5 MG TAB PO PRN (23:14)
[2019-04-19] MEDS: CEFAZOLIN 2 GM in Premix Bag 1 BAG IVPB SCH ×3 (05:07→20:07)
[2019-04-19] MEDS: HYDROcodone/Acetaminophen 10/325 mg Tablet PO PRN ×4 (07:29→21:07)
[2019-04-19] MEDS: Enoxaparin Sodium 40 MG/0.4 ML SYRINGE SC SCH (09:22)
[2019-04-19] MEDS: Amlodipine 5 MG TAB PO SCH (09:22)
[2019-04-19] MEDS: Saccharomyces boulardii 250 MG CAP PO SCH (09:24)
[2019-04-19] MEDS: Morphine 4 MG/ML VIAL SLOW IVP PRN ×2 (11:49→20:13)
--- NOTE | 2019-04-19 16:57 | PRG ---
DATE OF SERVICE: 04/19/2019 SUBJECTIVE: Pain is a little bit better, but still quite intense. No respiratory symptoms or abdominal pain. Voiding without difficulty. No diarrhea. OBJECTIVE: VITAL SIGNS: Vital signs are essentially normal. EXTREMITIES: The left foot is improved with less swelling, less erythema, and less tenderness. The leg continues to improve. LABORATORY DATA: The white cell count of 7.2, has not been repeated. The MRI was not particularly remarkable, she did have some myositis, but no abscess, then that would have to be drained. The DVT screen was negative. ASSESSMENT/DISCUSSION: Postop infection after skin cancer removal with MSSA or methicillin-sensitive staphylococcus aureus, abscess and cellulitis with somewhat delayed improvement but now it seems like she is turning around the corner. We should be able to discharge on oral Keflex in the next 24 to 48 hours. Job ID: [id number]
[2019-04-19] MEDS ORDERED: Sodium Chloride 0.9% 1,000 ML IV SCH (18:00)
[2019-04-20] MEDS: HYDROcodone/Acetaminophen 10/325 mg Tablet PO PRN ×4 (01:35→22:01)
[2019-04-20] MEDS: CEFAZOLIN 2 GM in Premix Bag 1 BAG IVPB SCH ×3 (05:16→20:35)
[2019-04-20] MEDS: Amlodipine 5 MG TAB PO SCH (08:45)
[2019-04-20] MEDS: Saccharomyces boulardii 250 MG CAP PO SCH (08:45)
[2019-04-20] MEDS: Enoxaparin Sodium 40 MG/0.4 ML SYRINGE SC SCH (08:45)
--- NOTE | 2019-04-20 10:11 | PRG ---
DATE OF SERVICE: 04/19/2019 The patient reports she still has quite a bit of pain in her leg when she is standing on it, but the swelling is significantly better. The MRI was negative for any drainable fluid collections. The ultrasound was negative for DVT. Her wound VAC was changed today. I had them re-culture it. On examination, she still has a quite bit of redness in the lower leg. ASSESSMENT: Cellulitis. PLAN: Continue antibiotics. Job ID: [id number]
--- NOTE | 2019-04-20 10:37 | PRG ---
DATE OF SERVICE: 04/20/2019 SUBJECTIVE: The patient is doing well. Pain is better, redness is better. PHYSICAL EXAMINATION: Temperature is 97, pulse 82, blood pressure 125/84. She looks good. There is significantly less edema and erythema. ASSESSMENT: Doing well. PLAN: Dr. Stewart wanted her to have maybe one more day of IV antibiotics and switch to p.o. and discharge. Job ID: [id number]
[2019-04-20] MEDS: Morphine 4 MG/ML VIAL SLOW IVP PRN ×2 (15:28→20:34)
[2019-04-20] MEDS ORDERED: Nystatin 500,000 UNITS/5 ML UDCUP SSW SCH (17:00)
[2019-04-20] MEDS: Nystatin 500,000 UNITS/5 ML UDCUP SSW SCH (20:35)
[2019-04-20] MEDS: Zolpidem Tartrate 5 MG TAB PO PRN (23:55)
[2019-04-21] MEDS: CEFAZOLIN 2 GM in Premix Bag 1 BAG IVPB SCH ×2 (05:43→13:21)
[2019-04-21] MEDS: HYDROcodone/Acetaminophen 10/325 mg Tablet PO PRN ×4 (05:46→17:26)
[2019-04-21] MEDS: Enoxaparin Sodium 40 MG/0.4 ML SYRINGE SC SCH (09:10)
[2019-04-21] MEDS: Saccharomyces boulardii 250 MG CAP PO SCH (09:10)
[2019-04-21] MEDS: Nystatin 500,000 UNITS/5 ML UDCUP SSW SCH ×2 (09:10→15:14)
[2019-04-21] MEDS: Amlodipine 5 MG TAB PO SCH (09:10)
[2019-04-21] MEDS: Morphine 4 MG/ML VIAL SLOW IVP PRN ×2 (11:12→17:51)
--- NOTE | 2019-04-21 14:44 | PRG ---
DATE OF SERVICE: 04/21/2019 SUBJECTIVE: Ms. Carrera is feeling better. She is able to walk, not yet back to normal, but almost there. No respiratory symptoms or abdominal pain. No diarrhea. OBJECTIVE: VITAL SIGNS: Show a T-max of 99. LUNGS: Clear. HEART: S1 and S2. Regular rate. ABDOMEN: Soft, not distended. EXTREMITIES: Left lower extremity with marked improvement in inflammatory changes. The foot is almost back to normal. Still has a negative pressure dressing. LABORATORY DATA: Her white cell count 7.2 and hemoglobin 10. Repeat cultures from the leg swab is not remarkable. ASSESSMENT AND DISCUSSION: Resection of skin cancer with postop infection with methicillin-sensitive Staphylococcus aureus with cellulitis. Finally, almost complete resolution of inflammatory process. The patient going home today on oral Keflex for another 7 days approximately plus wound care. Job ID: [id number]
[2019-04-21 15:17] VITALS: BP 116/79; TEMP 97.9
--- NOTE | 2019-04-23 22:15 | DIS ---
DATE OF ADMISSION: 04/12/2019 DATE OF DISCHARGE: 04/21/2019 DISCHARGE DIAGNOSIS: Abscess and cellulitis of the left lower leg. PROCEDURES DURING ADMISSION: I and D, debridement of wound, left lower leg, IV antibiotics, MRI of left lower extremity, vascular ultrasound of left lower extremity. HOSPITAL COURSE: The patient was admitted, taken to the operating room, where was underwent debridement of the wound with drainage of purulent fluid. Cultures grew out Staph aureus, pansensitive. She continued to have cellulitis. We consulted Infectious Disease, they modified her antibiotics, but it continued to get . MRI was performed, did not show any undrained purulent fluid. Ultrasound did not show any DVT. She is now doing well, much improved. She is discharged home on oral Keflex per ID recommendation as well as [place]. She will follow up with her primary care physician in . Job ID: [id number]
--- NOTE | 2019-04-24 06:15 | PQF ---
LUDWIN TORRES JOHN A JR MD [id number] [facility] [id number] CLINICAL DOCUMENTATION CLARIFICATION FORM: POST DISCHARGE Addendum to original discharge summary date: ____ Late entry note date: __ DATE:04/24/2019 ATTN: Sam De Anda Please exercise your independent, professional judgment in responding to the clarification form. Clinical indicators are provided on the bottom of this form for your review Please check appropriate box(s): [ x ] Cellulitis is a postoperative complication infection related to Sutures removal [ ] Cellulitis is not a postoperative complication infection related to Sutures removal [ ] Other diagnosis [ Unable to determine CLINICAL INDICATORS - SIGNS / SYMPTOMS / LABS Laboratory 04/13 WBC 15.2, Neutrophils 86.0, Lymphocystes 6.0, Lactic acid 0.7 Microbiology Wound culture 04/12 Postive MRSA H&P p1 04/12 Dr Durham She had a squamous cell carcinoma excised by Mohs sx, on the Mar. She says two days ago, she went in for postop check, They removed her sutures and has had progressive pain and swelling and erythema since. She reports low-grade fever at home Operative report p1 04/12 Dr Durham stitched removed on Wednesday, had a vert rapidly progressive painful infection of the lower leg that extended within 12 hrs concerned about fascitis ID consult p2 04/15 Dr Stewart Skin cancer removal with postop abscess s/p debridement and now has cellulitis PN p1 04/20 Dr Stewart Resection of skin cancer with postop infection with methicillin-sensitive Staphylococcus areus with cellulitis. Lower Extremity MRI p1 04/17 Dr Montes Large open wound with some minimal superficial linear fluid extensions horizontally, medially and laterally but these appear to connect to open wound. RISK FACTORS H&P p1 04/12 Squamous cell Carcinoma s/p Mohs surgery H&P p1 04/12 Cellulitis and abscess H&P p1 04/12 HTN TREATMENT: I&D with Excisional Debridement - Sam De Anda 04/12 IM consult 04/13 Ha Kirk ID consult 04/15 Sam De Anda APR 16 IV Vancomycin 1.5gm APR 16 IV Cefepime 2gm APR 16 IV Cefazolin 2gm APR 16 IV Zofran 4mg APR 16 IVF NS 1L APR 16 IV Toradol 30mg (This form is maintained as a part of the permanent medical record) 2014 [employer], [employer]. All Rights Reserved [email or web address]
== END 2019-04-21 19:55 | disposition home health service (06) | DRG 856 ==
LOC: ERS 14:43 → 3SE 17:22 → SDC/OP 17:33 → 3SE 19:00 → 2SE 04-19 10:34 → SJJU 04-19 19:10
PROVIDERS: ADMIT Surgery; ATTEND Surgery
PROC: 0JBP0ZZ Excision of Left Lower Leg Subcutaneous Tissue and Fascia, Open Approach (ICD-10-PCS; principal; 2019-04-12)
DX: T81.41XA Infection following a procedure, superficial incisional surgical site, initial encounter (principal); A41.9 Sepsis, unspecified organism; L03.116 Cellulitis of left lower limb; L02.416 Cutaneous abscess of left lower limb; B95.61 Methicillin susceptible Staphylococcus aureus infection as the cause of diseases classified elsewhere; Y84.8 Other medical procedures as the cause of abnormal reaction of the patient, or of later complication, without mention of misadventure at the time of the procedure; I10 Essential (primary) hypertension; Z85.828 Personal history of other malignant neoplasm of skin; Z79.899 Other long term (current) drug therapy
CPT/HCPCS: 36415; 80048; 80202; 83605; 85025; 87040; 87070; 87077; 87186; 87205; 90471; 90715; 94640; 96361; 96365; 96375; A9579; J0690; J0692; J0696; J1650; J1885; J2001; J2250; J2270; J2405; J2543; J2704; J3010; J3490; J7620